=== PATIENT | male | born 1990 | race Caucasian/White ===

== ENCOUNTER 2018-06-04 23:06 | Emergency (ER) | payer OTHER ==
[~2018-06-04] VITALS: Ht 172.7 cm; Wt 77.0 kg
--- NOTE | 2018-06-05 00:44 | NUR ---
pt to room from lobby
--- NOTE | 2018-06-05 01:14 | NUR ---
pt complains of bleeding when having a bowel movement. states the bleeding is in the toilet, denies it being in the stool or having darker colored stools. pt has a hx of internal hemorrhoids and states it feels the same but a little different. denies straining or being constipated lately. does have some lower abdominal pain.
[2018-06-05 01:36] LABS: BASOPHILS # (AUTO) 0.02 x10^3/uL (0-0.1); BASOPHILS % (AUTO) 0 % (0-1); EOSINOPHILS # (AUTO) 0.09 x10^3/uL (0-0.4); EOSINOPHILS % (AUTO) 1 % (1-7); LYMPHOCYTES # (AUTO) 2.74 x10^3/uL (1-3.4); LYMPHOCYTES % (AUTO) 33 % (22-44); MD NO; MEAN CORPUSCULAR HEMOGLOBIN 32.2 pg (27.5-34.5); MEAN CORPUSCULAR HGB CONC 34.3 g/dL (33.2-36.2); MEAN CORPUSCULAR VOLUME 93.8 fL (81-97); MONOCYTES # (AUTO) 0.75 x10^3/uL (0.2-0.8); MONOCYTES % (AUTO) 9 % (2-9); NEUTROPHILS # (AUTO) 4.64 x10^3/uL (1.8-6.8); NEUTROPHILS % (AUTO) 56 % (42-75); PLATELET COUNT 205 x10^3/uL (130-400); RED BLOOD COUNT 5.11 x10^6/uL (4.38-5.82); RED CELL DISTRIBUTION WIDTH 13.3 % (9.4-14.8)
[2018-06-05 01:50] LABS: ALANINE AMINOTRANSFERASE 32 U/L (12-78); ANION GAP 3 mmol/L (5-15); CALCIUM 8.5 mg/dL (8.5-10.1); CHLORIDE 109 mmol/L (98-107); CREATININE 1.14 mg/dL (0.7-1.3)
[2018-06-05 01:51] LABS: ALKALINE PHOSPHATASE 73 U/L (45-117); BILIRUBIN,TOTAL 0.4 mg/dL (0.2-1.0); TOTAL PROTEIN 7.1 g/dL (6.4-8.2)
[2018-06-05 02:33] VITALS: BP 105/50
== END 2018-06-05 02:35 | disposition home or self-care (01) ==
LOC: ED 06-05 02:00
DX: K62.5 Hemorrhage of anus and rectum (principal)
CPT/HCPCS: 36415; 80053; 83690; 85025; 99283

== ENCOUNTER 2021-01-03 12:59 | Inpatient (IN) | payer BC, OTHER ==
[~2021-01-03] VITALS: Ht 172.7 cm; Wt 78.7 kg
[2021-01-03 13:43] LABS: BASOPHILS % (AUTO) 1 % (0-1); EOSINOPHILS % (AUTO) 0 % (1-7); LYMPHOCYTES % (AUTO) 21 % (22-44); MEAN CORPUSCULAR HEMOGLOBIN 30.9 pg (27.5-34.5); MEAN CORPUSCULAR HGB CONC 33.6 g/dL (33.2-36.2); MEAN PLATELET VOLUME 8.3 fL (7.4-10.4); MONOCYTES % (AUTO) 14 % (2-9); NEUTROPHILS % (AUTO) 64 % (42-75); PLATELET COUNT 476 x10^3/uL (130-400); RED BLOOD COUNT 5.28 x10^6/uL (4.38-5.82); RED CELL DISTRIBUTION WIDTH 13.3 % (9.4-14.8)
[2021-01-03 13:55] LABS: ALBUMIN 3.4 g/dL (3.4-5.0); ANION GAP 8 mmol/L (5-15); CALCIUM 9.1 mg/dL (8.5-10.1); CHLORIDE 105 mmol/L (98-107)
[2021-01-03 13:58] LABS: ALANINE AMINOTRANSFERASE 114 U/L (12-78); ALKALINE PHOSPHATASE 76 U/L (45-117); BILIRUBIN,TOTAL 0.8 mg/dL (0.2-1.0); CREATININE 0.86 mg/dL (0.7-1.3); TOTAL PROTEIN 8.4 g/dL (6.4-8.2)
--- NOTE | 2021-01-03 16:54 | NUR ---
PT AMBULATED BACK TO ROOM WITHOUT DIFFICULTY.
--- NOTE | 2021-01-03 17:02 | NUR ---
PT REPORTS HE WAS PRESCRIBED ABX & STEROIDS FOR PNA BUT "MISSED A DAY" OF THE STEROIDS D/T N/V. REPORTS "COUGHING UP BLOOD", NOT SURE IF COMING FROM STOMACH OR LUNGS. AMBULATING AROUND IN ROOM, ASKING MANY QUESTIONS, ANXIOUS ABOUT HIS CONDITION.
--- NOTE | 2021-01-03 17:48 | NUR ---
ERP AT NOW.
[2021-01-03] MEDS ORDERED: HYDROcodone/APAP 5/325 TABLET ONE (18:29)
[2021-01-03] MEDS ORDERED: ONDANSETRON ODT 4 MG ONE (18:29)
[2021-01-03] MEDS ORDERED: HYDROcodone/APAP 5/325 TABLET PO ONE (18:30)
[2021-01-03] MEDS ORDERED: ONDANSETRON ODT 4 MG PO ONE (18:30)
--- NOTE | 2021-01-03 18:46 | NUR ---
PT C/O SOME BACK PAIN. MEDICATED PER ORDERS. IV PLACED FOR CTA.
--- NOTE | 2021-01-03 19:11 | NUR ---
CALLED PT'S JUHI AND UPDATED HER ON POC, PER PT. SHE WILL WAIT OUTSIDE OF ER UNTIL PT IS DISCHARGED.
--- NOTE | 2021-01-03 20:30 | NUR ---
ERP WAS IN TO SEE PT. ERP NOTED PT'S PO2 TO BE 89-90% ON RA AND PLACED HIM ON 2L O2 NC. PLAN TO START ON ELIQUIS AND ARRANGE HOME O2 FOR PT.
[2021-01-03] MEDS ORDERED: APIXABAN 5 MG TABLET ONE (20:46)
[2021-01-03] MEDS ORDERED: [UNRECOGNIZED DRUG - REMARK] PO (20:59)
[2021-01-03] MEDS ORDERED: [UNRECOGNIZED DRUG - REMARK] PO (20:59)
[2021-01-03] MEDS ORDERED: APIXABAN 5 MG TABLET PO SCH (21:00)
--- NOTE | 2021-01-03 21:40 | NUR ---
PT HAS BEEN VERY ANXIOUS ABOUT GOING HOME. HAS BEEN CALLING FAMILY MEMBERS ON THE PHONE FROM HIS ROOM AND STATES HE WOULD RATHER STAY IN THE HOSPITAL. ERP NOTIFIED.
--- NOTE | 2021-01-03 22:15 | NUR ---
ADMITTING MD AT .
[2021-01-03] MEDS ORDERED: OXYcodone IR 5MG TABLET PO PRN (22:30)
[2021-01-03] MEDS ORDERED: ONDANSETRON 2MG/ML, 2ML IVPush PRN (22:30)
[2021-01-03] MEDS ORDERED: POLYETHYLENE GLYCOL 17 GM PACKET PO PRN (22:30)
[2021-01-03] MEDS ORDERED: MELATONIN 5 MG TABLET PO SCH (22:30)
[2021-01-03] MEDS ORDERED: LABETALOL 5MG/ML, 20ML IVPush PRN (22:30)
[2021-01-03] MEDS ORDERED: PHARMACY MAY ADJ FOR RENAL FX MC PRN (22:30)
--- NOTE | 2021-01-03 22:50 | NUR ---
REPORTED TO ERA GARDNER.
[2021-01-03] MEDS ORDERED: ASCORBIC ACID 500 MG TABLET ONE (23:17)
[2021-01-03] MEDS ORDERED: MELATONIN 5 MG TABLET ONE (23:17)
[2021-01-03] MEDS ORDERED: FAMOTIDINE 20 MG TABLET ONE (23:17)
[2021-01-03] MEDS ORDERED: ACETAMINOPHEN 500 MG TABLET ONE (23:17)
[2021-01-03] MEDS: ASCORBIC ACID 500 MG TABLET PO SCH (23:22)
[2021-01-03] MEDS: FAMOTIDINE 20 MG TABLET PO SCH (23:22)
[2021-01-03] MEDS: ACETAMINOPHEN 500 MG TABLET PO SCH (23:27)
[2021-01-03] MEDS ORDERED: OMNIPAQUE 350 MG/ML, 100ML BOTTLE ONE (23:54)
--- NOTE | 2021-01-04 00:15 | NUR ---
Pt girlfriend brought pt belongings, given to pt.
--- NOTE | 2021-01-04 01:32 | NUR ---
Pt provided with sandwich, chips and drink as requested. VSS and will cont to monitor.
--- NOTE | 2021-01-04 03:59 | NUR ---
Pt sleeping at this time. Hospital bed ordered and will wait for pt to wake before changing beds. VSS and will cont to monitor.
[2021-01-04] MEDS ORDERED: OXYcodone IR 5MG TABLET ONE (04:39)
[2021-01-04] MEDS: ACETAMINOPHEN 500 MG TABLET PO SCH ×3 (06:30→10:30)
--- NOTE | 2021-01-04 06:53 | NUR ---
REPORT GIVEN TO JJ SELBY.
[2021-01-04 07:01] LABS: BASOPHILS % (AUTO) 1 % (0-1); EOSINOPHILS % (AUTO) 1 % (1-7); LYMPHOCYTES % (AUTO) 28 % (22-44); MEAN CORPUSCULAR HEMOGLOBIN 30.7 pg (27.5-34.5); MEAN CORPUSCULAR HGB CONC 33.5 g/dL (33.2-36.2); MEAN PLATELET VOLUME 7.9 fL (7.4-10.4); MONOCYTES % (AUTO) 17 % (2-9); NEUTROPHILS % (AUTO) 53 % (42-75); PLATELET COUNT 411 x10^3/uL (130-400); RED BLOOD COUNT 4.52 x10^6/uL (4.38-5.82)
[2021-01-04 07:15] LABS: ANION GAP 4 mmol/L (5-15); CALCIUM 8.5 mg/dL (8.5-10.1); CHLORIDE 105 mmol/L (98-107); CREATININE 0.68 mg/dL (0.7-1.3)
--- NOTE | 2021-01-04 07:23 | NUR ---
REPORT FROM BAL GARDNER. PT RESTING IN BED, NO DISTRESS. PT REMAINS ON MONITORS, VSS. PT IN NO RESPIR DISTRESS, PROTECTING OWN AIRWAY WELL. PT UPDATED ON POC, VERBALIZED UNDERSTANDING, AWAITING ADMIT BED. CONT TO MONITOR.
[2021-01-04] MEDS ORDERED: ASCORBIC ACID 500 MG TABLET ONE (08:50)
[2021-01-04] MEDS ORDERED: APIXABAN 5 MG TABLET ONE (08:50)
[2021-01-04] MEDS ORDERED: FAMOTIDINE 20 MG TABLET ONE (08:50)
[2021-01-04] MEDS ORDERED: ACETAMINOPHEN 500 MG TABLET ONE (08:51)
[2021-01-04] MEDS ORDERED: ZINC SULFATE 220 MG CAPSULE ONE (08:51)
[2021-01-04] MEDS ORDERED: APIXABAN 5 MG TABLET PO SCH ×2 (09:00→09:30)
[2021-01-04] MEDS ORDERED: ZINC SULFATE 220 MG CAPSULE PO SCH (09:00)
[2021-01-04] MEDS: FAMOTIDINE 20 MG TABLET PO SCH (09:17)
[2021-01-04] MEDS: ASCORBIC ACID 500 MG TABLET PO SCH (09:18)
--- NOTE | 2021-01-04 09:24 | NUR ---
SPOKE WITH ADMITTING MD DR. MILLER, OK TO GIVE ELIQUIS PT HAS NOT HAD ANY OTHER EPISODES OF BLOOD TINGED SPUTUM. PHARMACY AWARE, OK TO GIVE ELIQUIS. PT REMAINS ON MONITORS, VSS, NO RESPIR DISTRESS. PT O2 CURRENTLY DECREASED TO 1L, ADMITTING ERMD AWARE, WILL TITRATE O2 NEED TO MAINTAIN PT SAT. PT GIVEN MEAL TRAY. NO RESPIR DISTRESS. CONT TO MONITOR.
[2021-01-04 11:16] VITALS: BP 108/68
--- NOTE | 2021-01-04 11:16 | NUR ---
PT RESTING IN BED, REMAINS ON MONITORS, NO DISTRESS. PT REMANINS ON RA, SAT >92%. ADMITTING MD TO SEE IN ER, POSSIBLE D/C IF PT REAMIANS ABLE TO HOLD O2 SAT >92% ON RA. WILL CONT TO MONITOR.
[2021-01-04] MEDS ORDERED: APIX5TAB PO ×2 (11:46)
[2021-01-04] MEDS ORDERED: FAMO20TA7 PO (11:46)
[2021-01-04] MEDS ORDERED: ASCO500T9 PO (11:46)
[2021-01-04] MEDS ORDERED: BENZ100C PO (11:46)
[2021-01-04] MEDS ORDERED: ZINC220C8 PO (11:46)
[2021-01-04] MEDS ORDERED: DEXA6TAB6 PO (11:46)
--- NOTE | 2021-01-04 12:21 | NUR ---
PER ADMITTING MD DR. MILLER, PT OK TO D/C AFTER AMBULATION TRIAL ON RA. PT AMBULATED THROUGHOUT DEPARTMENT AND O2 SAT REMAINED>93%. PT OK FOR D/C. WILL LET FLOOR D/C RN KNOW.
--- NOTE | 2021-01-04 12:27 | NUR ---
SPOKE WITH BRITTANY GARDNER IN INPT D/C AREA. WILL D/C PT FROM ER WHEN D/C ORDERS AND PAPERWORK RECEIVED.
--- NOTE | 2021-01-04 13:41 | NUR ---
TASK RN NOTE: DISCUSSION WITH PT REGARDING ELIQUIS AND NEW RX. PT VERBALIZES UNDERSTANDING OF IMPORTANCE TO ESTABLISH PRIMARY CARE FOR ONGOING MAINTENANCE OF PE. PT ALSO UNDERSTANDS IMPORTANCE OF MAINTAINING ELIQUIS LEVELS AND NOT TO STOP TAKING THIS MEDICATION SUDDENLY OR RUN OUT. PT CALLING FOR RIDE AT THIS TIME AND COLLECTING BELONGINGS.NAD NOTED.
== END 2021-01-04 14:22 | disposition home or self-care (01) | DRG 177 ==
LOC: ED 18:32 → EDIP 21:25
PROVIDERS: ADMIT Internal Medicine; ATTEND Family Medicine
DX: U07.1 COVID-19 (principal); J96.01 Acute respiratory failure with hypoxia; J12.82 Pneumonia due to coronavirus disease 2019; I26.99 Other pulmonary embolism without acute cor pulmonale; F19.10 Other psychoactive substance abuse, uncomplicated; K64.9 Unspecified hemorrhoids; Z66 Do not resuscitate; F17.210 Nicotine dependence, cigarettes, uncomplicated
CPT/HCPCS: 36415; 71045; 71275; 80048; 80053; 84145; 85025; 93005; 99285; Q0162; Q9967